=== PATIENT | female | born 1960 | race Caucasian/White ===

== ENCOUNTER 2016-09-05 23:14 | Inpatient (IN) | payer OTHER ==
[~2016-09-05] VITALS: Ht 157.5 cm; Wt 59.0 kg
[2016-09-06] VITALS (8 sets, daily range): BP systolic 128–154; BP diastolic 58–65; PULSE 56–66; RESP 16–20; Ht 157.5 cm; Wt 59.0 kg
[2016-09-06] MEDS ORDERED: ONDANSETRON 4 MG INJ IV PRN (00:30)
[2016-09-06] MEDS ORDERED: morphine 2 MG INJ IV PRN (00:30)
[2016-09-06] MEDS ORDERED: HYDROCODONE/APAP (5/325) TAB PO PRN (00:30)
[2016-09-06] MEDS ORDERED: ACET500C3 PO (00:37)
[2016-09-06] MEDS ORDERED: ALEN70TA30 PO (00:37)
[2016-09-06] MEDS ORDERED: CALC1TAB79 PO (00:37)
[2016-09-06] MEDS ORDERED: IBUP-1542 PO (00:37)
[2016-09-06] MEDS ORDERED: SYN112 PO (00:38)
[2016-09-06] MEDS ORDERED: OMEP20CA16 PO (00:38)
[2016-09-06] MEDS: DEXTROSE 5%-0.45% NACL 1,000 ML IV SCH ×5 (01:09→23:19)
[2016-09-06 05:01] LABS: ADD SCAN DIFF NO
[2016-09-06 05:09] LABS: BASOPHIL # 0.1 10^3/ul (0.0-0.1); BASOPHILS % 0.5 % (0.0-2.0); EOSINOPHILS # 0.2 10^3/ul (0.0-0.5); HEMATOCRIT 31.1 % (37.0-47.0); LYMPHOCYTES # 1.9 10^3/ul (0.8-2.9); LYMPHOCYTES % 18.1 % (15.0-51.0); MEAN CORPUSCULAR HEMOGLOBIN 28.7 pg (29.0-33.0); MEAN CORPUSCULAR HGB CONC 32.2 g/dl (32.0-37.0); MEAN CORPUSCULAR VOLUME 89.1 fl (82.0-101.0); MEAN PLATELET VOLUME 9.2 fl (7.4-10.4); MONOCYTE # 0.8 10^3/ul (0.3-0.9); NEUTROPHIL # 7.4 10^3/ul (1.6-7.5); NEUTROPHILS % 70.8 % (39.0-77.0); PLATELET COUNT 325 10^3/UL (140-415); RED BLOOD COUNT 3.49 10^6/ul (4.20-5.40); RED CELL DISTRIBUTION WIDTH 13.7 % (11.5-14.5); WHITE BLOOD COUNT 10.5 10^3/ul (4.8-10.8)
[2016-09-06 05:56] LABS: ALBUMIN 3.7 g/dl (3.3-4.9); ALBUMIN/GLOBULIN RATIO 1.12; BILIRUBIN,INDIRECT 0.1 mg/dl (0-1.1); BILIRUBIN,TOTAL 0.1 mg/dl (0.2-1.3); CALCIUM 8.4 mg/dl (8.4-10.2); CHOL/HDL RATIO 7.3 RATIO; CREATININE 1.01 mg/dl (0.44-1.00); POTASSIUM 3.7 mmol/L (3.5-5.1)
[2016-09-06] MEDS: PANTOPRAZOLE 40 MG INJ IV SCH (07:09)
[2016-09-06] MEDS: LEVOTHYROXINE 112 MCG TAB PO SCH (07:35)
[2016-09-06] MEDS: CALCIUM/VITAMIN D (500/200) TAB PO SCH (09:00)
--- NOTE | 2016-09-06 11:34 | HP ---
Date/Time of Note Date/Time of Note DATE: 09/06/16 TIME: 11:07 Assessment/Plan VTE Prophylaxis VTE Prophylaxis Intervention: SCD's Lines/Catheters IV Catheter Type (from [facility]): Peripheral IV Urinary Cath still in place: No Assessment/Plan Assessment/Plan -Intractable nausea and vomiting, Dr. Robins is asked to see patient in gastroenterology consultation. -Chronic gastritis, continue Protonix. -Pancreatitis of unknown etiology, continue to monitor lipase and amylase, continue clear liquid diet as patient tolerates. -Hypothyroidism -Sinus bradycardia, will obtain thyroid profile, twelve-lead EKG -Rheumatoid arthritis -Osteoporosis Further recommendations based on clinical course. Plan of care discussed with Dr. Vega. HPI/ROS Admit Date/Time Admit Date/Time Sep 05, 2016 at 23:14 Hx of Present Illness The patient is is a 55-year-old female with past medical history positive for hypothyroidism, osteoporosis, rheumatoid arthritis, and gastritis. Patient developed abdominal pain nausea and vomiting and was admitted to [facility] August 29 and was diagnosed with pancreatitis, workup done including MRCP which was unremarkable, patient also underwent upper endoscopy by Dr. Porter, report is not available however gastric biopsy was positive for mild chronic gastritis and moderate interstitial metaplasia. Patient lipase was elevated to 3000 according to patient and came down to 800 and patient was discharged home. Patient was not able to tolerate food intake at home, complained of nausea and vomiting and patient presented to [facility] and was transferred to [facility] due to insurance reasons reason. Patient's complains of a burning sensation in the chest, patient denied any shortness of breath, denies any chest pain, denies any fever chills. ROS Negative and this was mentioned in HPI PMH/Family/Social Past Medical History Medical History: hypothyroid, other (Rheumatoid arthritis, osteoporosis, gastritis) Past Surgical History Past Surgical Hx: no surgical history Family History Significant Family History: no pertinent family hx Social History Alcohol Use: none Smoking Status: Never smoker Drug Use: none Exam/Review of Systems Vital Signs Vitals Vital Signs Date Time Temp Pulse Resp B/P Pulse Ox O2 Delivery O2 Flow Rate FiO2 09/06/16 09:48 66 09/06/16 07:20 98.1 18 128/58 100 09/06/16 00:00 Room Air Intake and Output 7/08/1709/05/16 09/06/16 15:00 23:00 07:00 Intake Total 830 ml Balance 830 ml Exam Constitutional: alert, oriented Psych: no complaints Head: atraumatic, normocephalic Neck: supple Respiratory: normal air movement Cardiovascular: nl pulses Gastrointestinal: non-tender, soft Musculoskeletal: nl extremities to inspection Extremities: normal pulses Neurological: nl mental status Skin: nl turgor Lymph: nl lymph nodes Labs Result Diagram: 09/06/1642409/06/16424 Medications Medications Current Medications Dextrose/Sodium Chloride (D5-1/2ns) 1,000 ml @ 100 mls/hr Q10H IV Last administered on 09/06/16 01:09; Admin Dose 100 MLS/HR; Start 09/06/16 at 00:30 Pantoprazole (Protonix Iv) 40 mg DAILY@06 IV Last administered on 09/06/16 07: 09; Admin Dose 40 MG; Start 09/06/16 at 06:00 Ondansetron HCl (Zofran Inj) 4 mg Q6H PRN IV NAUSEA AND/OR VOMITING; Start 09/06 at 00:30 Acetaminophen (Tylenol Tab) 650 mg Q4H PRN PO PAIN AND OR ELEVATED TEMP; Start 09/06/16 at 00:30 Acetaminophen/ Hydrocodone Bitart ([place] (5/325)) 1 tab Q4H PRN PO PAIN; Start 09/06/16 at 00:30 Morphine Sulfate (morphine) 2 mg Q4H PRN IV PAIN; Start 09/06/16 at 00:30 Alendronate Sodium (Fosamax) 70 mg Duff@0730 PO ; Start 09/08/16 at 07:30 Calcium/Vitamin D (Oyster Shell/ Vit-D (500/200)) 1 tab DAILY PO Last administered on 09/06/16 09:00; Admin Dose 1 TAB; Start 09/06/16 at 09:00 ANKITA TERRAZAS Sep 06, 2016 11:18
--- NOTE | 2016-09-06 11:49 | CONS ---
Date/Time of Note Date/Time of Note DATE: 09/06/16 TIME: 11:45 Assessment/Plan Assessment/Plan Additional Assessment/Plan Assessment Patient has a acute pancreatitis apparently has been going on for the past 2 weeks no suggestion for gallstone History of alcohol This possibilities is quite possible that she may be passing the sludge from the common bile Pancreatic divisum under the pancreatic duct abnormalities cannot be ruled out Sphincter of Oddi abnormality should be ruled out Plan recommend repeat CAT scan of the abdomen keep her n.p.o. Be happy to follow the patient with you Consultation Date/Type/Reason Admit Date/Time Sep 05, 2016 at 23:14 Hx of Present Illness History of abdominal pain secondary to pancreatitis Patient has been experiencing abdominal pain for the past 2 weeks She was evaluated in the [facility] and then [facility] Because of insurance reasons she was transferred to [facility] She had elevated amylase lipase in the range of 2000 and MRI and MRCP of the abdomen was negative CAT scan of the abdomen was negative she had upper endoscopy which showed evidence of gastritis She continues to have abdominal pain No history of alcoholism Review of systems rheumatoid arthritis hypothyroidism and osteoporosis Psychological: no complaints Past Medical History Medical History: hypothyroid, other (Rheumatoid arthritis, osteoporosis, gastritis) Past Surgical History Past Surgical Hx: no surgical history Social History Alcohol Use: none Smoking Status: Never smoker Drug Use: none Exam/Review of Systems Vital Signs Vitals Vital Signs Date Time Temp Pulse Resp B/P Pulse Ox O2 Delivery O2 Flow Rate FiO2 09/06/16 09:48 66 09/06/16 07:20 98.1 18 128/58 100 09/06/16 00:00 Room Air Intake and Output 09/05/16 09/05/16 09/06/16 15:00 23:00 07:00 Intake Total 830 ml Balance 830 ml Exam On examination patient appears to be well-built she is alert she is not in distress History of for the vitals Omission of the heart normal sinus rhythm Lungs clear on auscultation Abdomen showed a negative findings no abdominal tenderness no palpable masses 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 Results Result Diagram: 09/06/16 0425 09/06/16 0425 Results 24 hrs Laboratory Tests Test 09/06/16 04:25 White Blood Count 10.5 Red Blood Count 3.49 L Hemoglobin 10.0 L Hematocrit 31.1 L Mean Corpuscular Volume 89.1 Mean Corpuscular Hemoglobin 28.7 L Mean Corpuscular Hemoglobin Concent 32.2 Red Cell Distribution Width 13.7 Platelet Count 325 Mean Platelet Volume 9.2 Neutrophils % 70.8 Lymphocytes % 18.1 Monocytes % 8.0 Eosinophils % 2.0 Basophils % 0.5 Nucleated Red Blood Cells % 0.0 Neutrophils # 7.4 Lymphocytes # 1.9 Monocytes # 0.8 Eosinophils # 0.2 Basophils # 0.1 Nucleated Red Blood Cells # 0.0 Sodium Level 142 Potassium Level 3.7 Chloride Level 104 Carbon Dioxide Level 28 Anion Gap 14 Blood Urea Nitrogen 8 Creatinine 1.01 H Glucose Level 117 Calcium Level 8.4 Total Bilirubin 0.1 L Direct Bilirubin 0.00 Indirect Bilirubin 0.1 Aspartate Amino Transf (AST/SGOT) 25 Alanine Aminotransferase (ALT/SGPT) 29 Alkaline Phosphatase 75 Total Protein 7.0 Albumin 3.7 Globulin 3.30 H Albumin/Globulin Ratio 1.12 Triglycerides Level 113 Cholesterol Level 205 H LDL Cholesterol, Calculated 154 HDL Cholesterol 28 L Cholesterol/HDL Ratio 7.3 Amylase Level 188 H Lipase 804 H Medications Medications Current Medications Dextrose/Sodium Chloride (D5-1/2ns) 1,000 ml @ 100 mls/hr Q10H IV Last administered on 09/06/16 01:09; Admin Dose 100 MLS/HR; Start 09/06/16 at 00:30 Pantoprazole (Protonix Iv) 40 mg DAILY@06 IV Last administered on 09/06/16 07: 09; Admin Dose 40 MG; Start 09/06/16 at 06:00 Ondansetron HCl (Zofran Inj) 4 mg Q6H PRN IV NAUSEA AND/OR VOMITING; Start 09/06 at 00:30 Acetaminophen (Tylenol Tab) 650 mg Q4H PRN PO PAIN AND OR ELEVATED TEMP; Start 09/06/16 at 00:30 Acetaminophen/ Hydrocodone Bitart ([place] (5/325)) 1 tab Q4H PRN PO PAIN; Start 09/06/16 at 00:30 Morphine Sulfate (morphine) 2 mg Q4H PRN IV PAIN; Start 09/06/16 at 00:30 Alendronate Sodium (Fosamax) 70 mg Duff@0730 PO ; Start 09/08/16 at 07:30 Calcium/Vitamin D (Oyster Shell/ Vit-D (500/200)) 1 tab DAILY PO Last administered on 09/06/16t 09:00; Admin Dose 1 TAB; Start 09/06/16 at 09:00 SKYLER MCCLELLAND MD Sep 06, 2016 11:49
[2016-09-06 12:49] LABS: ADD SCAN DIFF NO
[2016-09-06 12:52] LABS: BASOPHIL # 0.1 10^3/ul (0.0-0.1); BASOPHILS % 0.6 % (0.0-2.0); EOSINOPHILS # 0.3 10^3/ul (0.0-0.5); EOSINOPHILS % 2.5 % (0.0-7.0); HEMOGLOBIN 11.1 g/dl (12.0-16.0); LYMPHOCYTES # 2.2 10^3/ul (0.8-2.9); LYMPHOCYTES % 20.2 % (15.0-51.0); MEAN CORPUSCULAR HEMOGLOBIN 29.2 pg (29.0-33.0); MEAN CORPUSCULAR HGB CONC 32.6 g/dl (32.0-37.0); MEAN CORPUSCULAR VOLUME 89.5 fl (82.0-101.0); MEAN PLATELET VOLUME 8.9 fl (7.4-10.4); MONOCYTE # 0.9 10^3/ul (0.3-0.9); MONOCYTES % 8.3 % (0.0-11.0); NEUTROPHIL # 7.3 10^3/ul (1.6-7.5); NEUTROPHILS % 67.9 % (39.0-77.0); PLATELET COUNT 361 10^3/UL (140-415); RED CELL DISTRIBUTION WIDTH 13.6 % (11.5-14.5); WHITE BLOOD COUNT 10.8 10^3/ul (4.8-10.8)
[2016-09-06] MEDS ORDERED: BARIUM SULF 2% 450 ML BTL (BERRY SMOOTHIE) PO ONE (13:00)
--- NOTE | 2016-09-06 16:57 | RADRPT ---
Vent Rate: 42 bpm RR Interval: 0 msec PA Interval: 116 msec QRS Duration: 72 msec QT Interval: 496 msec QTC Interval: 414 msec P-R-T [place]: 56 - 8 - 11 degrees Marked sinus bradycardia Nonspecific T wave abnormality Abnormal ECG Electronically Signed By: Hardik Winkler [id number]
[2016-09-07 02:00] VITALS: BP 116/53; PULSE 48; RESP 18
[2016-09-07 03:10] VITALS: BP 116/53; RESP 18
[2016-09-07 05:20] LABS: ADD SCAN DIFF NO
[2016-09-07 05:34] LABS: BASOPHIL # 0.1 10^3/ul (0.0-0.1); BASOPHILS % 0.8 % (0.0-2.0); EOSINOPHILS # 0.4 10^3/ul (0.0-0.5); EOSINOPHILS % 4.2 % (0.0-7.0); HEMATOCRIT 32.8 % (37.0-47.0); HEMOGLOBIN 10.7 g/dl (12.0-16.0); LYMPHOCYTES # 1.6 10^3/ul (0.8-2.9); LYMPHOCYTES % 18.9 % (15.0-51.0); MEAN CORPUSCULAR HEMOGLOBIN 29.1 pg (29.0-33.0); MEAN CORPUSCULAR HGB CONC 32.6 g/dl (32.0-37.0); MEAN CORPUSCULAR VOLUME 89.1 fl (82.0-101.0); MEAN PLATELET VOLUME 9.3 fl (7.4-10.4); MONOCYTE # 0.8 10^3/ul (0.3-0.9); MONOCYTES % 8.9 % (0.0-11.0); NEUTROPHIL # 5.8 10^3/ul (1.6-7.5); NEUTROPHILS % 66.7 % (39.0-77.0); PLATELET COUNT 337 10^3/UL (140-415); RED BLOOD COUNT 3.68 10^6/ul (4.20-5.40); RED CELL DISTRIBUTION WIDTH 13.3 % (11.5-14.5); WHITE BLOOD COUNT 8.6 10^3/ul (4.8-10.8)
[2016-09-07 05:59] LABS: ALBUMIN 3.8 g/dl (3.3-4.9); ALBUMIN/GLOBULIN RATIO 1.11; BILIRUBIN,INDIRECT 0.2 mg/dl (0-1.1); BILIRUBIN,TOTAL 0.2 mg/dl (0.2-1.3); CALCIUM 8.8 mg/dl (8.4-10.2); CREATININE 0.93 mg/dl (0.44-1.00); POTASSIUM 3.2 mmol/L (3.5-5.1); TOTAL PROTEIN 7.2 g/dl (6.1-8.1)
[2016-09-07] MEDS: LEVOTHYROXINE 112 MCG TAB PO SCH (06:25)
[2016-09-07] MEDS: PANTOPRAZOLE 40 MG INJ IV SCH (06:25)
[2016-09-07 08:14] VITALS: BP 119/59; RESP 18
[2016-09-07] MEDS: CALCIUM/VITAMIN D (500/200) TAB PO SCH (09:00)
[2016-09-07] MEDS: DEXTROSE 5%-0.45% NACL 1,000 ML IV SCH ×2 (10:28→16:30)
--- NOTE | 2016-09-07 12:38 | PN ---
Date/Time of Note Date/Time of Note DATE: 09/07/16 TIME: 12:37 Assessment/Plan VTE Prophylaxis VTE Prophylaxis Intervention: other Lines/Catheters IV Catheter Type (from Nrs): Peripheral IV Urinary Cath still in place: No Assessment/Plan Chief Complaint/Hosp Course -Intractable nausea and vomiting, Dr. Robins is asked to see patient in gastroenterology consultation. -Chronic gastritis, continue Protonix. -Pancreatitis of unknown etiology, continue to monitor lipase and amylase, continue clear liquid diet as patient tolerates. -Hypothyroidism -Sinus bradycardia, will obtain thyroid profile, twelve-lead EKG -Rheumatoid arthritis -Osteoporosis Problems: Subjective 24 Hr Interval Summary Free Text/Dictation Patient still complain of abdominal pain Exam/Review of Systems Vital Signs Vitals Vital Signs Date Time Temp Pulse Resp B/P Pulse Ox O2 Delivery O2 Flow Rate FiO2 09/07/16 08:14 97.7 50 18 119/59 98 09/07/16 02:00 Room Air Intake and Output 09/06/16 09/06/16 09/07/16 15:00 23:00 07:00 Intake Total 1220 ml 1630 ml Balance 1220 ml 1630 ml Exam Constitutional: well developed Head: atraumatic, normocephalic Neck: supple Respiratory: clear to auscultation Cardiovascular: regular rate and rhythm Gastrointestinal: soft, tender Extremities: normal pulses Results Result Diagram: 09/07/16 0435 09/07/16 0435 Results 24 hrs Laboratory Tests Test 09/06/16 12:40 09/07/16 04:35 White Blood Count 10.8 8.6 # Red Blood Count 3.80 L 3.68 L Hemoglobin 11.1 L 10.7 L Hematocrit 34.0 L 32.8 L Mean Corpuscular Volume 89.5 89.1 Mean Corpuscular Hemoglobin 29.2 29.1 Mean Corpuscular Hemoglobin Concent 32.6 32.6 Red Cell Distribution Width 13.6 13.3 Platelet Count 361 337 Mean Platelet Volume 8.9 9.3 Neutrophils % 67.9 66.7 Lymphocytes % 20.2 18.9 Monocytes % 8.3 8.9 Eosinophils % 2.5 4.2 Basophils % 0.6 0.8 Nucleated Red Blood Cells % 0.0 0.0 Neutrophils # 7.3 5.8 Lymphocytes # 2.2 1.6 Monocytes # 0.9 0.8 Eosinophils # 0.3 0.4 Basophils # 0.1 0.1 Nucleated Red Blood Cells # 0.0 0.0 Sodium Level 144 Potassium Level 3.2 L Chloride Level 101 Carbon Dioxide Level 29 Anion Gap 17 H Blood Urea Nitrogen 4 L Creatinine 0.93 Glucose Level 137 Calcium Level 8.8 Total Bilirubin 0.2 Direct Bilirubin 0.00 Indirect Bilirubin 0.2 Aspartate Amino Transf (AST/SGOT) 24 Alanine Aminotransferase (ALT/SGPT) 39 Alkaline Phosphatase 75 Total Protein 7.2 Albumin 3.8 Globulin 3.40 H Albumin/Globulin Ratio 1.11 Amylase Level 287 H Lipase 1686 H Thyroid Stimulating Hormone (TSH) 47.300 H Medications Medications Current Medications Dextrose/Sodium Chloride (D5-1/2ns) 1,000 ml @ 100 mls/hr Q10H IV Last administered on 09/07/16 10:28; Admin Dose 100 MLS/HR; Start 09/06/16 at 00:30 Pantoprazole (Protonix Iv) 40 mg DAILY@06 IV Last administered on 09/07/16 06: 25; Admin Dose 40 MG; Start 09/06/16 at 06:00 Ondansetron HCl (Zofran Inj) 4 mg Q6H PRN IV NAUSEA AND/OR VOMITING; Start 09/06 at 00:30 Acetaminophen (Tylenol Tab) 650 mg Q4H PRN PO PAIN AND OR ELEVATED TEMP; Start 09/06/16 at 00:30 Acetaminophen/ Hydrocodone Bitart ([place] (5/325)) 1 tab Q4H PRN PO PAIN; Start 09/06/16 at 00:30 Morphine Sulfate (morphine) 2 mg Q4H PRN IV PAIN; Start 09/06/16 at 00:30 Alendronate Sodium (Fosamax) 70 mg Duff@0730 PO ; Start 09/08/16 at 07:30 Calcium/Vitamin D (Oyster Shell/ Vit-D (500/200)) 1 tab DAILY PO Last administered on 09/06/16 09:00; Admin Dose 1 TAB; Start 09/06/16 at 09:00 Miscellaneous Information VOLUMEN [address] S... ONCE XX ; Start 09/07/16 at 11:00; Status UNV Potassium Chloride/Dextrose/ Sod Cl (D5-1/2ns + KCl 40 Meq) 1,000 ml @ 100 mls/ hr Q10H IV ; Start 09/07/16 at 12:00 CASSY ALLEN Sep 07, 2016 12:37
[2016-09-07] MEDS ORDERED: BARIUM SULFATE 0.1% 450 ML BTL (VOLUMEN) PO ONE (13:17)
[2016-09-07] MEDS ORDERED: BARIUM SULFATE 0.1% 450 ML BTL (VOLUMEN) PO SCH (13:30)
[2016-09-07 14:00] VITALS: BP 172/74; RESP 16
[2016-09-07] MEDS: D5W-0.45 NACL + KCL 40 MEQ 1,000 ML IV SCH ×2 (14:24→22:00)
[2016-09-07] MEDS ORDERED: SOD CHLORIDE 0.9% 100 ML ONE (15:37)
[2016-09-07] MEDS ORDERED: IOHEXOL 300MG/ML 150 ML BTL ONE (15:37)
--- NOTE | 2016-09-07 16:57 | RADRPT ---
PROCEDURE: CT abdomen and pelvis without and with contrast. CLINICAL INDICATION: Abdominal pain radiating to the back. Clinical symptoms of pancreatitis TECHNIQUE: CT scan of the abdomen and pelvis without and then with contrast was performed includin g arterial and venous phase imaging. Coronal and sagittal images were also reformatted. 100 cc Omn ipaque-300 intravenous contrast was administered without complication. Total exam CTDIvol = 26.11 m Gy and DLP = 1075.07 mGy-cm. COMPARISON: None available. FINDINGS: Visualized lower thorax: Linear areas of segmental atelectasis or scarring in the right middle lobe, lingula and posterior lower lobes. The visualized heart is mildly enlarged. Tiny bilateral pleura l effusions are present slightly greater on the left. Liver, gallbladder, pancreas and spleen: Diffuse low attenuation of the liver is present with julia l liver contour and size the maximum dimension 15.7 cm. Some sparing of normal hepatic attenuation of the gallbladder fossa is present. There is no evidence for liver mass or ductal dilatation. The gallbladder is unremarkable. No common bile duct dilatation is evident. The pancreas is normal in attenuation without adjacent inflammation to suggest pancreatitis. No pancreatic mass or necrosis is present. The pancreatic duct is normal in caliber. The spleen is normal, not enlarged. Adrenal glands and genitourinary system: The adrenal glands are normal bilaterally. The kidneys ar e normal in size, contour and attenuation with no evidence for masses, calculi or hydronephrosis. S ubtle patchy heterogeneous enhancement of the right renal cortex near the upper pole is equivocal fo r pyelonephritis without abscess. A tiny cyst in the medial right upper pole is approximately 7 mm. The ureters are unremarkable. The urinary bladder shows no abnormality. The uterus and adnexa ar e unremarkable. There is no free fluid in the cul-de-sac. Gastrointestinal system: Small sliding hiatal hernia is present. The remainder of the stomach is u nremarkable, normal in caliber without wall thickening or perienteric inflammation There is no evid ence of obstruction, ileus or inflammation. There is no evidence of appendicitis. Some hyperdense f ecal debris is seen throughout the colon but there is no evidence of colitis or diverticulitis. Peritoneum, retroperitoneum, vessels and lymph nodes: The abdominal aorta is normal in caliber. Th ere is no evidence for atherosclerotic calcification. Normal enhancement of the arterial branches is demonstrated. Inferior vena cava is normal in caliber. There is no evidence for adenopathy. The peritoneal cavity is normal with no evidence for ascites. Osseous structures and musculoskeletal system: There is no evidence for acute osseous abnormality o r muscular pathology. Trace degenerative disk disease at L2-3 is noted. Small fat-containing right inguinal hernia is approximately 1.7 cm. No subcutaneous abnormalities are present. RPTAT:HJJR IMPRESSION: 1. Homogeneous attenuation of the pancreas without adjacent peripancreatic inflammation to correlate with the provided history of pancreatitis. 2. Hepatic steatosis with normal liver size. 3. Subtle patchy heterogeneous enhancement of the upper pole right kidney equivocal for pyelonephri tis without abscess, consider correlation with costovertebral angle tenderness on physical exam and urinalysis if not already performed. 4. Tiny bilateral pleural effusions, cardiac enlargement and scattered bibasilar subsegmental atele ctasis. 5. Small sliding hiatal hernia. 6. Fat-containing right inguinal hernia of approximately 1.7 cm. Physician Mariajose Date Time Electronically viewed and signed by Physician Mariajose on 09/07/2016 16:57 /
[2016-09-07 17:14] VITALS: BP 140/78; PULSE 55
--- NOTE | 2016-09-07 19:41 | CONS ---
Date/Time of Note Date/Time of Note DATE: 09/07/16 TIME: 19:40 Assessment/Plan Assessment/Plan Chief Complaint/Hosp Course History of abdominal pain secondary to pancreatitis Patient has been experiencing abdominal pain for the past 2 weeks She was evaluated in the [facility] and then [facility] Because of insurance reasons she was transferred to [facility] She had elevated amylase lipase in the range of 2000 and MRI and MRCP of the abdomen was negative CAT scan of the abdomen was negative she had upper endoscopy which showed evidence of gastritis She continues to have abdominal pain No history of alcoholism Review of systems rheumatoid arthritis hypothyroidism and osteoporosis Problems: Consultation Date/Type/Reason Admit Date/Time Sep 05, 2016 at 23:14 Hx of Present Illness History of abdominal pain secondary to pancreatitis Patient has been experiencing abdominal pain for the past 2 weeks She was evaluated in the [facility] and then [facility] Because of insurance reasons she was transferred to [facility] She had elevated amylase lipase in the range of 2000 and MRI and MRCP of the abdomen was negative CAT scan of the abdomen was negative she had upper endoscopy which showed evidence of gastritis She continues to have abdominal pain No history of alcoholism Review of systems rheumatoid arthritis hypothyroidism and osteoporosis Psychological: no complaints Past Medical History Medical History: hypothyroid, other (Rheumatoid arthritis, osteoporosis, gastritis) Past Surgical History Past Surgical Hx: no surgical history Social History Alcohol Use: none Smoking Status: Never smoker Drug Use: none Exam/Review of Systems Vital Signs Vitals Vital Signs Date Time Temp Pulse Resp B/P Pulse Ox O2 Delivery O2 Flow Rate FiO2 09/07/16 17:14 55 140/78 09/07/16 14:00 97.8 16 100 09/07/16 02:00 Room Air Intake and Output 09/06/16 09/06/16 09/07/16 15:00 23:00 07:00 Intake Total 1220 ml 1630 ml Balance 1220 ml 1630 ml Results Result Diagram: 09/07/16 0435 09/07/16 0435 Results 24 hrs Laboratory Tests Test 09/07/16 04:35 White Blood Count 8.6 # Red Blood Count 3.68 L Hemoglobin 10.7 L Hematocrit 32.8 L Mean Corpuscular Volume 89.1 Mean Corpuscular Hemoglobin 29.1 Mean Corpuscular Hemoglobin Concent 32.6 Red Cell Distribution Width 13.3 Platelet Count 337 Mean Platelet Volume 9.3 Neutrophils % 66.7 Lymphocytes % 18.9 Monocytes % 8.9 Eosinophils % 4.2 Basophils % 0.8 Nucleated Red Blood Cells % 0.0 Neutrophils # 5.8 Lymphocytes # 1.6 Monocytes # 0.8 Eosinophils # 0.4 Basophils # 0.1 Nucleated Red Blood Cells # 0.0 Sodium Level 144 Potassium Level 3.2 L Chloride Level 101 Carbon Dioxide Level 29 Anion Gap 17 H Blood Urea Nitrogen 4 L Creatinine 0.93 Glucose Level 137 Calcium Level 8.8 Total Bilirubin 0.2 Direct Bilirubin 0.00 Indirect Bilirubin 0.2 Aspartate Amino Transf (AST/SGOT) 24 Alanine Aminotransferase (ALT/SGPT) 39 Alkaline Phosphatase 75 Total Protein 7.2 Albumin 3.8 Globulin 3.40 H Albumin/Globulin Ratio 1.11 Amylase Level 287 H Lipase 1686 H Thyroid Stimulating Hormone (TSH) 47.300 H Medications Medications Current Medications Pantoprazole (Protonix Iv) 40 mg DAILY@06 IV Last administered on 09/07/16 06: 25; Admin Dose 40 MG; Start 09/06/16 at 06:00 Ondansetron HCl (Zofran Inj) 4 mg Q6H PRN IV NAUSEA AND/OR VOMITING; Start 09/06 at 00:30 Acetaminophen (Tylenol Tab) 650 mg Q4H PRN PO PAIN AND OR ELEVATED TEMP; Start 09/06/16 at 00:30 Acetaminophen/ Hydrocodone Bitart ([place] (5/325)) 1 tab Q4H PRN PO PAIN; Start 09/06/16 at 00:30 Morphine Sulfate (morphine) 2 mg Q4H PRN IV PAIN; Start 09/06/16 at 00:30 Alendronate Sodium (Fosamax) 70 mg Duff@0730 PO ; Start 09/08/16 at 07:30 Calcium/Vitamin D 1 tab 1 tab DAILY PO Last administered on 09/06/16 09:00; Admin Dose 1 TAB; Start 09/06/16 at 09:00 Potassium Chloride/Dextrose/ Sod Cl (D5-1/2ns + KCl 40 Meq) 1,000 ml @ 100 mls/ hr Q10H IV Last administered on 09/07/16 14:24; Admin Dose 100 MLS/HR; Start at 12:00 SKYLER MCCLELLAND MD Sep 07, 2016 19:40
--- NOTE | 2016-09-07 19:42 | CONS ---
Date/Time of Note Date/Time of Note DATE: 09/07/16 TIME: 19:41 Assessment/Plan Assessment/Plan Chief Complaint/Hosp Course History of abdominal pain secondary to pancreatitis Patient has been experiencing abdominal pain for the past 2 weeks She was evaluated in the [facility] and then [facility] Because of insurance reasons she was transferred to [facility] She had elevated amylase lipase in the range of 2000 and MRI and MRCP of the abdomen was negative CAT scan of the abdomen was negative she had upper endoscopy which showed evidence of gastritis She continues to have abdominal pain No history of alcoholism Review of systems rheumatoid arthritis hypothyroidism and osteoporosis Problems: Consultation Date/Type/Reason Admit Date/Time Sep 05, 2016 at 23:14 Initial Consult Date 24 HR Interval Summary Free Text/Dictation no pain Exam/Review of Systems Vital Signs Vitals Vital Signs Date Time Temp Pulse Resp B/P Pulse Ox O2 Delivery O2 Flow Rate FiO2 09/07/16 17:14 55 140/78 09/07/16 14:00 97.8 16 100 09/07/16 02:00 Room Air Intake and Output 09/06/16 09/06/16 09/07/16 15:00 23:00 07:00 Intake Total 1220 ml 1630 ml Balance 1220 ml 1630 ml Exam vs normal abd soft ct abd no pancreatitis lipasec elevated Results Result Diagram: 09/07/16 0435 09/07/16 0435 Results 24 hrs Laboratory Tests Test 09/07/16 04:35 White Blood Count 8.6 # Red Blood Count 3.68 L Hemoglobin 10.7 L Hematocrit 32.8 L Mean Corpuscular Volume 89.1 Mean Corpuscular Hemoglobin 29.1 Mean Corpuscular Hemoglobin Concent 32.6 Red Cell Distribution Width 13.3 Platelet Count 337 Mean Platelet Volume 9.3 Neutrophils % 66.7 Lymphocytes % 18.9 Monocytes % 8.9 Eosinophils % 4.2 Basophils % 0.8 Nucleated Red Blood Cells % 0.0 Neutrophils # 5.8 Lymphocytes # 1.6 Monocytes # 0.8 Eosinophils # 0.4 Basophils # 0.1 Nucleated Red Blood Cells # 0.0 Sodium Level 144 Potassium Level 3.2 L Chloride Level 101 Carbon Dioxide Level 29 Anion Gap 17 H Blood Urea Nitrogen 4 L Creatinine 0.93 Glucose Level 137 Calcium Level 8.8 Total Bilirubin 0.2 Direct Bilirubin 0.00 Indirect Bilirubin 0.2 Aspartate Amino Transf (AST/SGOT) 24 Alanine Aminotransferase (ALT/SGPT) 39 Alkaline Phosphatase 75 Total Protein 7.2 Albumin 3.8 Globulin 3.40 H Albumin/Globulin Ratio 1.11 Amylase Level 287 H Lipase 1686 H Thyroid Stimulating Hormone (TSH) 47.300 H Medications Medications Current Medications Pantoprazole (Protonix Iv) 40 mg DAILY@06 IV Last administered on 09/07/16 06: 25; Admin Dose 40 MG; Start 09/06/16 at 06:00 Ondansetron HCl (Zofran Inj) 4 mg Q6H PRN IV NAUSEA AND/OR VOMITING; Start 09/06 at 00:30 Acetaminophen (Tylenol Tab) 650 mg Q4H PRN PO PAIN AND OR ELEVATED TEMP; Start 09/06/16 at 00:30 Acetaminophen/ Hydrocodone Bitart ([place] (5/325)) 1 tab Q4H PRN PO PAIN; Start 09/06/16 at 00:30 Morphine Sulfate (morphine) 2 mg Q4H PRN IV PAIN; Start 09/06/16 at 00:30 Alendronate Sodium (Fosamax) 70 mg Duff@0730 PO ; Start 09/08/16 at 07:30 Calcium/Vitamin D 1 tab 1 tab DAILY PO Last administered on 09/06/16 09:00; Admin Dose 1 TAB; Start 09/06/16 at 09:00 Potassium Chloride/Dextrose/ Sod Cl (D5-1/2ns + KCl 40 Meq) 1,000 ml @ 100 mls/ hr Q10H IV Last administered on 09/07/16 14:24; Admin Dose 100 MLS/HR; Start at 12:00 SKYLER MCCLELLAND MD Sep 07, 2016 19:42
[2016-09-07 19:47] VITALS: BP 138/65; RESP 20
[2016-09-08 02:09] VITALS: BP 100/52; RESP 18
[2016-09-08] MEDS: D5W-0.45 NACL + KCL 40 MEQ 1,000 ML IV SCH ×2 (02:33→14:44)
[2016-09-08] MEDS: PANTOPRAZOLE 40 MG INJ IV SCH (05:42)
[2016-09-08] MEDS: LEVOTHYROXINE 112 MCG TAB PO SCH (06:07)
[2016-09-08] MEDS ORDERED: ALENDRONATE 70 MG TAB PO SCH (07:30)
[2016-09-08 08:08] VITALS: BP 110/51; RESP 18
[2016-09-08] MEDS: CALCIUM/VITAMIN D (500/200) TAB PO SCH (09:07)
--- NOTE | 2016-09-08 12:30 | PN ---
Date/Time of Note Date/Time of Note DATE: 09/08/16 TIME: 12:30 Assessment/Plan VTE Prophylaxis VTE Prophylaxis Intervention: other Lines/Catheters IV Catheter Type (from Nrsg): Peripheral IV Urinary Cath still in place: No Assessment/Plan Chief Complaint/Hosp Course -Intractable nausea and vomiting, Dr. Robins is asked to see patient in gastroenterology consultation. -Chronic gastritis, continue Protonix. -Pancreatitis of unknown etiology, continue to monitor lipase and amylase, continue clear liquid diet as patient tolerates. -Hypothyroidism -Sinus bradycardia, will obtain thyroid profile, twelve-lead EKG -Rheumatoid arthritis -Osteoporosis Problems: Subjective 24 Hr Interval Summary Free Text/Dictation Patient denies any pain, tolerating her current diet Exam/Review of Systems Vital Signs Vitals Vital Signs Date Time Temp Pulse Resp B/P Pulse Ox O2 Delivery O2 Flow Rate FiO2 09/08/16 08:08 98.3 60 18 110/51 97 09/07/16 02:00 Room Air Intake and Output 09/07/16 09/07/16 09/08/16 15:00 23:00 07:00 Intake Total 700 ml 2080 ml 1200 ml Balance 700 ml 2080 ml 1200 ml Exam Constitutional: well developed Head: atraumatic, normocephalic Neck: supple Respiratory: clear to auscultation Cardiovascular: regular rate and rhythm Gastrointestinal: soft, tender Extremities: normal pulses Results Result Diagram: 09/07/16 0435 09/07/16 0435 Medications Medications Current Medications Pantoprazole (Protonix Iv) 40 mg DAILY@06 IV Last administered on 09/08/16t 05: 42; Admin Dose 40 MG; Start 09/06/16 at 06:00 Ondansetron HCl (Zofran Inj) 4 mg Q6H PRN IV NAUSEA AND/OR VOMITING; Start 09/06 at 00:30 Acetaminophen (Tylenol Tab) 650 mg Q4H PRN PO PAIN AND OR ELEVATED TEMP; Start 09/06/16 at 00:30 Acetaminophen/ Hydrocodone Bitart ([place] (5/325)) 1 tab Q4H PRN PO PAIN; Start 09/06/16 at 00:30 Morphine Sulfate (morphine) 2 mg Q4H PRN IV PAIN; Start 09/06/16 at 00:30 Alendronate Sodium (Fosamax) 70 mg [place]@0730 PO ; Start 09/08/16 at 07:30 Calcium/Vitamin D 1 tab 1 tab DAILY PO Last administered on 09/08/16 09:07; Admin Dose 1 TAB; Start 09/06/16 at 09:00 Potassium Chloride/Dextrose/ Sod Cl (D5-1/2ns + KCl 40 Meq) 1,000 ml @ 100 mls/ hr Q10H IV Last administered on 09/08/16 02:33; Admin Dose 100 MLS/HR; Start at 12:00 CASSY ALLEN Sep 08, 2016 12:30
[2016-09-08 14:58] VITALS: BP 129/72; RESP 16
--- NOTE | 2016-09-08 17:52 | CONS ---
Date/Time of Note Date/Time of Note DATE: 09/08/16 TIME: 17:49 Assessment/Plan Assessment/Plan Chief Complaint/Hosp Course History of abdominal pain secondary to pancreatitis Patient has been experiencing abdominal pain for the past 2 weeks She was evaluated in the [facility] and then [facility] Because of insurance reasons she was transferred to [facility] She had elevated amylase lipase in the range of 2000 and MRI and MRCP of the abdomen was negative CAT scan of the abdomen was negative she had upper endoscopy which showed evidence of gastritis She continues to have abdominal pain No history of alcoholism Review of systems rheumatoid arthritis hypothyroidism and osteoporosis Problems: Additional Assessment/Plan slowly ressolving pancreatitis etio un clear lipase still elevated pt not toxic abd to full liquids at patients request Consultation Date/Type/Reason Admit Date/Time Sep 05, 2016 at 23:14 24 HR Interval Summary Free Text/Dictation no abd pain on clear liquids wants to eat more Exam/Review of Systems Vital Signs Vitals Vital Signs Date Time Temp Pulse Resp B/P Pulse Ox O2 Delivery O2 Flow Rate FiO2 09/08/16 14:58 97.7 59 16 129/72 97 09/07/16 02:00 Room Air Intake and Output 09/07/16 09/07/16 09/08/16 15:00 23:00 07:00 Intake Total 700 ml 2080 ml 1200 ml Balance 700 ml 2080 ml 1200 ml Exam appears well abd soft non tender Results Result Diagram: 09/07/16 0435 09/07/16 0435 Results 24 hrs Laboratory Tests Test 09/08/16 11:34 Lipase 1614 H Medications Medications Current Medications Pantoprazole (Protonix Iv) 40 mg DAILY@06 IV Last administered on 09/08/16t 05: 42; Admin Dose 40 MG; Start 09/06/16 at 06:00 Ondansetron HCl (Zofran Inj) 4 mg Q6H PRN IV NAUSEA AND/OR VOMITING; Start 09/06 at 00:30 Acetaminophen (Tylenol Tab) 650 mg Q4H PRN PO PAIN AND OR ELEVATED TEMP; Start 09/06/16 at 00:30 Acetaminophen/ Hydrocodone Bitart ([place] (5/325)) 1 tab Q4H PRN PO PAIN; Start 09/06/16 at 00:30 Morphine Sulfate (morphine) 2 mg Q4H PRN IV PAIN; Start 09/06/16 at 00:30 Calcium/Vitamin D 1 tab 1 tab DAILY PO Last administered on 09/08/16 09:07; Admin Dose 1 TAB; Start 09/06/16 at 09:00 Potassium Chloride/Dextrose/ Sod Cl (D5-1/2ns + KCl 40 Meq) 1,000 ml @ 100 mls/ hr Q10H IV Last administered on 09/08/16 14:44; Admin Dose 100 MLS/HR; Start at 12:00 Alendronate Sodium (Fosamax) 70 mg Mo@0730 PO ; Start 09/09/16 at 07:30 SKYLER MCCLELLAND MD Sep 08, 2016 17:51
[2016-09-08] MEDS: CREON (12k-38k-60k) 1 CAP PO SCH (18:06)
[2016-09-08 19:40] VITALS: BP 127/60; RESP 18
[2016-09-09] MEDS: D5W-0.45 NACL + KCL 40 MEQ 1,000 ML IV SCH ×2 (00:58→13:36)
[2016-09-09] MEDS: PANTOPRAZOLE 40 MG INJ IV SCH (06:02)
[2016-09-09] MEDS: LEVOTHYROXINE 112 MCG TAB PO SCH (07:00)
[2016-09-09] MEDS ORDERED: ALENDRONATE 70 MG TAB PO SCH (07:30)
[2016-09-09] MEDS: CREON (12k-38k-60k) 1 CAP PO SCH ×3 (08:25→17:33)
[2016-09-09] MEDS: CALCIUM/VITAMIN D (500/200) TAB PO SCH (08:25)
[2016-09-09 08:31] VITALS: BP 104/55; RESP 16
--- NOTE | 2016-09-09 13:08 | PN ---
Date/Time of Note Date/Time of Note DATE: 09/09/16 TIME: 13:05 Assessment/Plan VTE Prophylaxis VTE Prophylaxis Intervention: SCD's Lines/Catheters IV Catheter Type (from Nrs): Peripheral IV Urinary Cath still in place: No Assessment/Plan Chief Complaint/Hosp Course Patient tolerates liquid diet well, denies any vomiting nausea, refused levothyroxine in the morning, medication compliance is discussed with patient in details. Assessment/Plan -Intractable nausea and vomiting, Dr. Robins is following in gastroenterology consultation. -Chronic gastritis, continue Protonix. -Pancreatitis of unknown etiology, continue to monitor lipase and amylase, continue clear liquid diet as patient tolerates. -Hypothyroidism, TSH is 47, will increase Synthroid. -Sinus bradycardia -Rheumatoid arthritis -Osteoporosis Further recommendations based on clinical course. Plan of care discussed with Dr. Vega. Problems: Exam/Review of Systems Vital Signs Vitals Vital Signs Date Time Temp Pulse Resp B/P Pulse Ox O2 Delivery O2 Flow Rate FiO2 09/09/16 08:31 98.0 58 16 104/55 99 09/07/16 02:00 Room Air Intake and Output 09/08/16 09/08/16 09/09/16 14:59 22:59 06:59 Intake Total 1420 ml 800 ml Balance 1420 ml 800 ml Exam Constitutional: alert, oriented Head: atraumatic, normocephalic Neck: supple Respiratory: normal air movement Cardiovascular: nl pulses Gastrointestinal: non-tender, soft Musculoskeletal: nl extremities to inspection Extremities: normal pulses Neurological: nl mental status Skin: nl turgor Results Result Diagram: 09/07/16 0435 09/07/16 0435 Results 24 hrs Laboratory Tests Test 09/09/16 04:32 Lipase 1447 H Medications Medications Current Medications Pantoprazole (Protonix Iv) 40 mg DAILY@06 IV Last administered on 09/09/16t 06: 02; Admin Dose 40 MG; Start 09/06/16 at 06:00 Ondansetron HCl (Zofran Inj) 4 mg Q6H PRN IV NAUSEA AND/OR VOMITING; Start 09/06 at 00:30 Acetaminophen (Tylenol Tab) 650 mg Q4H PRN PO PAIN AND OR ELEVATED TEMP; Start 09/06/16 at 00:30 Acetaminophen/ Hydrocodone Bitart ([place] (5/325)) 1 tab Q4H PRN PO PAIN; Start 09/06/16 at 00:30 Morphine Sulfate (morphine) 2 mg Q4H PRN IV PAIN; Start 09/06/16 at 00:30 Calcium/Vitamin D 1 tab 1 tab DAILY PO Last administered on 09/09/16 08:25; Admin Dose 1 TAB; Start 09/06/16 at 09:00 Potassium Chloride/Dextrose/ Sod Cl (D5-1/2ns + KCl 40 Meq) 1,000 ml @ 100 mls/ hr Q10H IV Last administered on 09/09/16 00:58; Admin Dose 100 MLS/HR; Start 09/07/16 at 12:00 Alendronate Sodium 70 mg 70 mg Mo@0730 PO ; Start 09/09/16 at 07:30 Potassium Chloride/ Multivitamins/ Dextrose/Sodium Chloride (KCl/Mvi Adult/ D5-1 /2ns) 1,030 ml @ 100 mls/hr DAILY@10 IV ; Start 09/09/16 at 12:00 ANKITA TERRAZAS Sep 09, 2016 13:08
[2016-09-09] MEDS: [UNRECOGNIZED DRUG - OTHER] IV SCH ×3 (13:33)
[2016-09-09] MEDS: MULTIVITAMIN IV SCH ×3 (13:33)
[2016-09-09] MEDS: DEXTROSE IV SCH ×3 (13:33)
[2016-09-09] MEDS: POTASSIUM CHLORIDE IV SCH ×3 (13:33)
[2016-09-09 15:13] VITALS: BP 129/72; RESP 16
[2016-09-09 15:22] LABS: T3 UPTAKE 29.9 % (23.5-40.5)
[2016-09-09] MEDS: LEVOTHYROXINE 150 MCG TAB PO SCH (16:51)
[2016-09-09 22:42] VITALS: BP 108/57; RESP 19
--- NOTE | 2016-09-09 23:41 | RADRPT ---
PROCEDURE: MRCP. CLINICAL INDICATION: Pancreatitis TECHNIQUE: MRCP was performed on the a high-resolution, high Priya field strength scanner. Patien t was examined without contrast. 3-D coronal rotating MIP images of the biliary tree are available for review. COMPARISON: CT abdomen and pelvis with and without contrast of 09/07/2016 FINDINGS: Gallbladder is unremarkable. The biliary tree is not dilated. No intrahepatic nor extrahepatic bili keyanna dilatation is present. No filling defect or choledocholithiasis is seen. There is no stricture o r obstruction seen in the extrahepatic bile duct. The pancreatic duct, as visualized, is equally unr emarkable. 1 cm right renal cyst. IMPRESSION: 1. Unremarkable MRCP RPTAT: HJES .Roger Ferris MD, Date Time Electronically viewed and signed by .Roger Ferris MD, on 09/09/2016 23:41 .S/
[2016-09-10 02:48] VITALS: BP 106/51; RESP 19
[2016-09-10] MEDS: D5W-0.45 NACL + KCL 40 MEQ 1,000 ML IV SCH ×3 (03:01→23:53)
[2016-09-10] MEDS: PANTOPRAZOLE (EC) 40 MG TAB PO SCH (05:09)
[2016-09-10] MEDS: LEVOTHYROXINE 150 MCG TAB PO SCH (05:09)
[2016-09-10] MEDS ORDERED: ALENDRONATE 70 MG TAB PO SCH (06:00)
[2016-09-10] MEDS ORDERED: LEVOTHYROXINE 150 MCG TAB PO SCH (06:00)
[2016-09-10 06:31] LABS: ADD SCAN DIFF NO
[2016-09-10 06:49] LABS: BASOPHIL # 0.1 10^3/ul (0.0-0.1); BASOPHILS % 0.9 % (0.0-2.0); EOSINOPHILS # 0.3 10^3/ul (0.0-0.5); EOSINOPHILS % 4.5 % (0.0-7.0); HEMATOCRIT 33.1 % (37.0-47.0); HEMOGLOBIN 10.7 g/dl (12.0-16.0); LYMPHOCYTES # 1.6 10^3/ul (0.8-2.9); LYMPHOCYTES % 21.4 % (15.0-51.0); MEAN CORPUSCULAR HEMOGLOBIN 29.4 pg (29.0-33.0); MEAN CORPUSCULAR HGB CONC 32.3 g/dl (32.0-37.0); MEAN CORPUSCULAR VOLUME 90.9 fl (82.0-101.0); MEAN PLATELET VOLUME 9.9 fl (7.4-10.4); MONOCYTES % 13.4 % (0.0-11.0); NEUTROPHIL # 4.4 10^3/ul (1.6-7.5); NEUTROPHILS % 59.4 % (39.0-77.0); PLATELET COUNT 282 10^3/UL (140-415); RED BLOOD COUNT 3.64 10^6/ul (4.20-5.40); RED CELL DISTRIBUTION WIDTH 13.7 % (11.5-14.5); WHITE BLOOD COUNT 7.5 10^3/ul (4.8-10.8)
[2016-09-10 07:22] LABS: CALCIUM 9.3 mg/dl (8.4-10.2); CREATININE 0.84 mg/dl (0.44-1.00); POTASSIUM 4.5 mmol/L (3.5-5.1)
[2016-09-10] MEDS: CALCIUM/VITAMIN D (500/200) TAB PO SCH (08:20)
[2016-09-10] MEDS: CREON (12k-38k-60k) 1 CAP PO SCH ×3 (08:20→17:21)
[2016-09-10 08:56] VITALS: BP 133/70; RESP 18
--- NOTE | 2016-09-10 11:47 | PN ---
Date/Time of Note Date/Time of Note DATE: 09/10/16 TIME: 11:45 Assessment/Plan VTE Prophylaxis VTE Prophylaxis Intervention: SCD's Lines/Catheters IV [facility] ([facility] Peripheral IV Urinary Cath still in place: No Assessment/Plan Chief Complaint/Hosp Course Patient is status post MRCP yesterday, started on pured diet, denies any nausea vomiting today, complains of poor appetite. Assessment/Plan -Intractable nausea and vomiting, Dr. Robins is following in gastroenterology consultation. -Chronic gastritis, continue Protonix. -Pancreatitis of unknown etiology, continue to monitor lipase and amylase, advance diet per gastroenterology recommendations. -Hypothyroidism, TSH is 47, continue at increased dose Synthroid. -Sinus bradycardia -Rheumatoid arthritis -Osteoporosis Further recommendations based on clinical course. Plan of care discussed with Dr. Vega. Problems: Exam/Review of Systems Vital Signs Vitals Vital Signs Date Time Temp Pulse Resp B/P Pulse Ox O2 Delivery O2 Flow Rate FiO2 09/10/16 08:56 98.0 71 18 133/70 98 09/07/16 02:00 Room Air Intake and Output 09/09/16 09/09/16 09/10/16 15:00 23:00 07:00 Intake Total 500 ml 700 ml 1100 ml Balance 500 ml 700 ml 1100 ml Exam Constitutional: alert, oriented Head: atraumatic, normocephalic Neck: supple Respiratory: normal air movement Cardiovascular: nl pulses Gastrointestinal: non-tender, soft Musculoskeletal: nl extremities to inspection Extremities: normal pulses Neurological: nl mental status Skin: nl turgor Results Result Diagram: 09/10/16 0435 09/10/16 0435 Results 24 hrs Laboratory Tests Test 09/09/16 14:23 09/10/16 04:35 Free Thyroxine Index 3.80 Thyroxine (T4) 12.7 H Triiodothyronine (T3) Uptake 29.9 White Blood Count 7.5 Red Blood Count 3.64 L Hemoglobin 10.7 L Hematocrit 33.1 L Mean Corpuscular Volume 90.9 Mean Corpuscular Hemoglobin 29.4 Mean Corpuscular Hemoglobin Concent 32.3 Red Cell Distribution Width 13.7 Platelet Count 282 Mean Platelet Volume 9.9 Neutrophils % 59.4 Lymphocytes % 21.4 Monocytes % 13.4 H Eosinophils % 4.5 Basophils % 0.9 Nucleated Red Blood Cells % 0.0 Neutrophils # 4.4 Lymphocytes # 1.6 Monocytes # 1.0 H Eosinophils # 0.3 Basophils # 0.1 Nucleated Red Blood Cells # 0.0 Sodium Level 135 Potassium Level 4.5 Chloride Level 104 Carbon Dioxide Level 26 Anion Gap 10 Blood Urea Nitrogen 4 L Creatinine 0.84 Glucose Level 116 Calcium Level 9.3 Medications Medications Current Medications Ondansetron HCl (Zofran Inj) 4 mg Q6H PRN IV NAUSEA AND/OR VOMITING; Start 09/06 at 00:30 Acetaminophen (Tylenol Tab) 650 mg Q4H PRN PO PAIN AND OR ELEVATED TEMP; Start 09/06/16 at 00:30 Acetaminophen/ Hydrocodone Bitart ([place] (5/325)) 1 tab Q4H PRN PO PAIN; Start 09/06/16 at 00:30 Morphine Sulfate (morphine) 2 mg Q4H PRN IV PAIN; Start 09/06/16 at 00:30 Calcium/Vitamin D 1 tab 1 tab DAILY PO Last administered on 09/10/16 08:20; Admin Dose 1 TAB; Start 09/06/16 at 09:00 Potassium Chloride/Dextrose/ Sod Cl 1,000 ml @ 100 mls/hr Q10H IV Last administered on 09/10/16 03:01; Admin Dose 100 MLS/HR; Start 09/07/16 at 12:00 Potassium Chloride/ Multivitamins/ Dextrose/Sodium Chloride (KCl/Mvi Adult/ D5-1 /2ns) 1,030 ml @ 100 mls/hr DAILY@10 IV Last administered on 09/09/16 13:33; Admin Dose 100 MLS/HR; Start 09/09/16 at 12:00 Levothyroxine Sodium (Synthroid) 150 mcg DAILY@06 PO Last administered on 05:09; Admin Dose 150 MCG; Start 09/09/16 at 16:00 Alendronate Sodium (Fosamax) 70 mg Tu@06 PO Last administered on 09/10/16 05: 09; Admin Dose 70 MG; Start 09/10/16 at 06:00 Pantoprazole (Protonix Tab) 40 mg DAILY@06 PO Last administered on 09/10/16 05 :09; Admin Dose 40 MG; Start 09/10/16 at 06:00 Neomycin/ Polymyxin/ Bacitracin (Neosporin Topical Oint) 1 applic BID TOP ; Start 09/10/16 at 11:00 ANKITA TERRAZAS Sep 10, 2016 11:47
[2016-09-10] MEDS: [UNRECOGNIZED DRUG - OTHER] IV SCH ×3 (12:12)
[2016-09-10] MEDS: DEXTROSE IV SCH ×3 (12:12)
[2016-09-10] MEDS: POTASSIUM CHLORIDE IV SCH ×3 (12:12)
[2016-09-10] MEDS: MULTIVITAMIN IV SCH ×3 (12:12)
[2016-09-10] MEDS: NEOMYC/POLYMYX/BACIT 30 GM OINT TOP SCH ×2 (13:56→20:36)
[2016-09-10 15:14] VITALS: BP_SYST 133; BP_SYST 95; BP_DIAS 50; BP_DIAS 70; RESP 16; RESP 18
[2016-09-10 20:43] VITALS: BP 99/51; RESP 18
[2016-09-11 02:11] VITALS: BP 113/53; RESP 18
[2016-09-11] MEDS: PANTOPRAZOLE (EC) 40 MG TAB PO SCH (05:02)
[2016-09-11] MEDS: LEVOTHYROXINE 150 MCG TAB PO SCH (05:04)
[2016-09-11] MEDS: D5W-0.45 NACL + KCL 40 MEQ 1,000 ML IV SCH ×2 (06:00→16:50)
[2016-09-11 07:35] VITALS: BP 118/64; RESP 16
[2016-09-11] MEDS: NEOMYC/POLYMYX/BACIT 30 GM OINT TOP SCH ×2 (08:22→21:06)
[2016-09-11] MEDS: CREON (12k-38k-60k) 1 CAP PO SCH ×3 (08:22→17:16)
[2016-09-11] MEDS: CALCIUM/VITAMIN D (500/200) TAB PO SCH (08:22)
[2016-09-11] MEDS: MULTIVITAMIN IV SCH ×3 (12:28)
[2016-09-11] MEDS: DEXTROSE IV SCH ×3 (12:28)
[2016-09-11] MEDS: [UNRECOGNIZED DRUG - OTHER] IV SCH ×3 (12:28)
[2016-09-11] MEDS: POTASSIUM CHLORIDE IV SCH ×3 (12:28)
[2016-09-11 14:03] VITALS: BP 99/57; RESP 16
--- NOTE | 2016-09-11 17:37 | PN ---
Date/Time of Note Date/Time of Note DATE: 09/11/16 TIME: 17:36 Assessment/Plan VTE Prophylaxis VTE Prophylaxis Intervention: SCD's Lines/Catheters IV Catheter Type (from Nrs): Peripheral IV Urinary Cath still in place: No Assessment/Plan Chief Complaint/Hosp Course Patient denies any nausea vomiting, tolerates pured diet well. Assessment/Plan -Intractable nausea and vomiting, Dr. Robins is following in gastroenterology consultation. -Chronic gastritis, continue Protonix. -Pancreatitis of unknown etiology, continue to monitor lipase and amylase, advance diet per gastroenterology recommendations. -Hypothyroidism, TSH is 47, continue at increased dose Synthroid. -Sinus bradycardia -Rheumatoid arthritis -Osteoporosis Further recommendations based on clinical course. Plan of care discussed with Dr. Vega. Problems: Exam/Review of Systems Vital Signs Vitals Vital Signs Date Time Temp Pulse Resp B/P Pulse Ox O2 Delivery O2 Flow Rate FiO2 09/11/16 14:03 98.1 77 16 99/57 99 Intake and Output 09/10/16 09/10/16 09/11/16 15:00 23:00 07:00 Intake Total 700 ml 1460 ml 1300 ml Balance 700 ml 1460 ml 1300 ml Exam Constitutional: alert, oriented Head: atraumatic, normocephalic Neck: supple Respiratory: normal air movement Cardiovascular: nl pulses Gastrointestinal: non-tender, soft Musculoskeletal: nl extremities to inspection Extremities: normal pulses Neurological: nl mental status Skin: nl turgor Results Result Diagram: 09/10/16 0435 09/10/16 0435 Results 24 hrs Laboratory Tests Test 09/11/16 05:20 Lipase 901 H Medications Medications Current Medications Ondansetron HCl (Zofran Inj) 4 mg Q6H PRN IV NAUSEA AND/OR VOMITING; Start 09/06 at 00:30 Acetaminophen (Tylenol Tab) 650 mg Q4H PRN PO PAIN AND OR ELEVATED TEMP; Start 09/06/16 at 00:30 Acetaminophen/ Hydrocodone Bitart ([place] (5/325)) 1 tab Q4H PRN PO PAIN; Start 09/06/16 at 00:30 Morphine Sulfate (morphine) 2 mg Q4H PRN IV PAIN; Start 09/06/16 at 00:30 Calcium/Vitamin D 1 tab 1 tab DAILY PO Last administered on 09/11/16t 08:22; Admin Dose 1 TAB; Start 09/06/16 at 09:00 Potassium Chloride/Dextrose/ Sod Cl 1,000 ml @ 100 mls/hr Q10H IV Last administered on 09/11/16 16:50; Admin Dose 100 MLS/HR; Start 09/07/16 at 12:00 Potassium Chloride/ Multivitamins/ Dextrose/Sodium Chloride (KCl/Mvi Adult/ D5-1 /2ns) 1,030 ml @ 100 mls/hr DAILY@10 IV Last administered on 09/11/16 12:28; Admin Dose 100 MLS/HR; Start 09/09/16 at 12:00 Levothyroxine Sodium (Synthroid) 150 mcg DAILY@06 PO Last administered on 05:04; Admin Dose 150 MCG; Start 09/09/16 at 16:00 Alendronate Sodium (Fosamax) 70 mg Tu@06 PO Last administered on 09/10/16 05: 09; Admin Dose 70 MG; Start 09/10/16 at 06:00 Pantoprazole (Protonix Tab) 40 mg DAILY@06 PO Last administered on 09/11/16 05 :02; Admin Dose 40 MG; Start 09/10/16 at 06:00 Neomycin/ Polymyxin/ Bacitracin (Neosporin Topical Oint) 1 applic BID TOP Last administered on 09/11/16 08:22; Admin Dose 1 APPLIC; Start 09/10/16 at 11:00 ANKITA TERRAZAS Sep 11, 2016 17:37
[2016-09-11 20:57] VITALS: BP 107/57; RESP 18
[2016-09-12] MEDS: D5W-0.45 NACL + KCL 40 MEQ 1,000 ML IV SCH ×3 (02:00→22:19)
[2016-09-12 02:52] VITALS: BP 107/53; RESP 18
[2016-09-12 05:07] LABS: ADD SCAN DIFF NO
[2016-09-12 05:10] LABS: BASOPHIL # 0.1 10^3/ul (0.0-0.1); BASOPHILS % 1.1 % (0.0-2.0); EOSINOPHILS # 0.3 10^3/ul (0.0-0.5); EOSINOPHILS % 3.3 % (0.0-7.0); HEMOGLOBIN 10.5 g/dl (12.0-16.0); LYMPHOCYTES # 1.7 10^3/ul (0.8-2.9); LYMPHOCYTES % 21.4 % (15.0-51.0); MEAN CORPUSCULAR HEMOGLOBIN 28.9 pg (29.0-33.0); MEAN CORPUSCULAR HGB CONC 31.8 g/dl (32.0-37.0); MEAN CORPUSCULAR VOLUME 90.9 fl (82.0-101.0); MEAN PLATELET VOLUME 9.6 fl (7.4-10.4); MONOCYTE # 0.7 10^3/ul (0.3-0.9); NEUTROPHIL # 5.1 10^3/ul (1.6-7.5); NEUTROPHILS % 64.9 % (39.0-77.0); PLATELET COUNT 279 10^3/UL (140-415); RED BLOOD COUNT 3.63 10^6/ul (4.20-5.40); RED CELL DISTRIBUTION WIDTH 13.8 % (11.5-14.5); WHITE BLOOD COUNT 7.9 10^3/ul (4.8-10.8)
[2016-09-12 05:33] LABS: CALCIUM 9.5 mg/dl (8.4-10.2); CREATININE 0.8 mg/dl (0.44-1.00); POTASSIUM 4.4 mmol/L (3.5-5.1)
[2016-09-12] MEDS: PANTOPRAZOLE (EC) 40 MG TAB PO SCH (05:45)
[2016-09-12] MEDS: LEVOTHYROXINE 150 MCG TAB PO SCH (05:45)
[2016-09-12] MEDS: CREON (12k-38k-60k) 1 CAP PO SCH ×3 (08:09→17:32)
[2016-09-12] MEDS: CALCIUM/VITAMIN D (500/200) TAB PO SCH (08:09)
[2016-09-12] MEDS: NEOMYC/POLYMYX/BACIT 30 GM OINT TOP SCH ×2 (08:10→22:19)
[2016-09-12 08:16] VITALS: BP 120/56; RESP 18
[2016-09-12] MEDS: DEXTROSE IV SCH ×3 (12:10)
[2016-09-12] MEDS: POTASSIUM CHLORIDE IV SCH ×3 (12:10)
[2016-09-12] MEDS: [UNRECOGNIZED DRUG - OTHER] IV SCH ×3 (12:10)
[2016-09-12] MEDS: MULTIVITAMIN IV SCH ×3 (12:10)
[2016-09-12 14:37] VITALS: BP 100/55; RESP 20
--- NOTE | 2016-09-12 19:03 | PN ---
Date/Time of Note Date/Time of Note DATE: 09/12/16 TIME: 18:59 Assessment/Plan VTE Prophylaxis VTE Prophylaxis Intervention: other Lines/Catheters IV Catheter Type (from [facility]): Peripheral IV Urinary Cath still in place: No Assessment/Plan Assessment/Plan -Intractable nausea and vomiting- none at Present. - per Dr. Robins in gastroenterology consultation. -Chronic gastritis, continue Protonix. -Pancreatitis of unknown etiology - continue to monitor lipase and amylase. Lipase 901. - advance diet per gastroenterology recommendations. -Hypothyroidism, TSH is 47, continue at increased dose Synthroid. -Sinus bradycardia -Rheumatoid arthritis -Osteoporosis Further recommendations based on clinical course. Plan of care discussed with Dr. Vega. Subjective 24 Hr Interval Summary Free Text/Dictation having dinner, denies any nausea vomiting, tolerates pured diet well.denies any abdominal phillip. no Lipase lab today. dw staff Exam/Review of Systems Vital Signs Vitals Vital Signs Date Time Temp Pulse Resp B/P Pulse Ox O2 Delivery O2 Flow Rate FiO2 09/12/16 14:37 98.5 69 20 100/55 100 Intake and Output 09/11/16 09/11/16 09/12/16 15:00 23:00 07:00 Intake Total 2520 ml 300 ml Balance 2520 ml 300 ml Exam Constitutional: alert, oriented, well developed Respiratory: clear to auscultation, normal air movement Cardiovascular: nl pulses, regular rate and rhythm Gastrointestinal: soft, tender Musculoskeletal: nl extremities to inspection Extremities: normal pulses Neurological: nl mental status, nl speech Results Result Diagram: 09/12/16 0446 09/12/16 0445 Results 24 hrs Laboratory Tests Test 09/12/16 04:45 09/12/16 04:46 Sodium Level 133 L Potassium Level 4.4 Chloride Level 102 Carbon Dioxide Level 26 Anion Gap 9 Blood Urea Nitrogen 6 L Creatinine 0.80 Glucose Level 101 Calcium Level 9.5 White Blood Count 7.9 Red Blood Count 3.63 L Hemoglobin 10.5 L Hematocrit 33.0 L Mean Corpuscular Volume 90.9 Mean Corpuscular Hemoglobin 28.9 L Mean Corpuscular Hemoglobin Concent 31.8 L Red Cell Distribution Width 13.8 Platelet Count 279 Mean Platelet Volume 9.6 Neutrophils % 64.9 Lymphocytes % 21.4 Monocytes % 9.0 Eosinophils % 3.3 Basophils % 1.1 Nucleated Red Blood Cells % 0.0 Neutrophils # 5.1 Lymphocytes # 1.7 Monocytes # 0.7 Eosinophils # 0.3 Basophils # 0.1 Nucleated Red Blood Cells # 0.0 Medications Medications Current Medications Ondansetron HCl (Zofran Inj) 4 mg Q6H PRN IV NAUSEA AND/OR VOMITING; Start 09/06 at 00:30 Acetaminophen (Tylenol Tab) 650 mg Q4H PRN PO PAIN AND OR ELEVATED TEMP; Start 09/06/16 at 00:30 Acetaminophen/ Hydrocodone Bitart ([place] (5/325)) 1 tab Q4H PRN PO PAIN; Start 09/06/16 at 00:30 Morphine Sulfate (morphine) 2 mg Q4H PRN IV PAIN; Start 09/06/16 at 00:30 Calcium/Vitamin D 1 tab 1 tab DAILY PO Last administered on 09/12/16 08:09; Admin Dose 1 TAB; Start 09/06/16 at 09:00 Potassium Chloride/Dextrose/ Sod Cl 1,000 ml @ 100 mls/hr Q10H IV Last administered on 09/11/16 16:50; Admin Dose 100 MLS/HR; Start 09/07/16 at 12:00 Potassium Chloride/ Multivitamins/ Dextrose/Sodium Chloride (KCl/Mvi Adult/ D5-1 /2ns) 1,030 ml @ 100 mls/hr DAILY@10 IV Last administered on 09/12/16 12:10; Admin Dose 100 MLS/HR; Start 09/09/16 at 12:00 Levothyroxine Sodium (Synthroid) 150 mcg DAILY@06 PO Last administered on 05:45; Admin Dose 150 MCG; Start 09/09/16 at 16:00 Alendronate Sodium (Fosamax) 70 mg Tu@06 PO Last administered on 09/10/16 05: 09; Admin Dose 70 MG; Start 09/10/16 at 06:00 Pantoprazole (Protonix Tab) 40 mg DAILY@06 PO Last administered on 09/12/16 05 :45; Admin Dose 40 MG; Start 09/10/16 at 06:00 Neomycin/ Polymyxin/ Bacitracin (Neosporin Topical Oint) 1 applic BID TOP Last administered on 09/12/16 08:10; Admin Dose 1 APPLIC; Start 09/10/16 at 11:00 RIGOBERTO CASILLAS Sep 12, 2016 19:02
[2016-09-12 20:00] VITALS: BP 103/58; RESP 18
[2016-09-13 02:58] VITALS: BP 105/58; RESP 18
[2016-09-13] MEDS: PANTOPRAZOLE (EC) 40 MG TAB PO SCH (05:07)
[2016-09-13] MEDS: LEVOTHYROXINE 150 MCG TAB PO SCH (05:08)
[2016-09-13 05:36] LABS: ADD SCAN DIFF NO
[2016-09-13 05:46] LABS: BASOPHIL # 0.1 10^3/ul (0.0-0.1); BASOPHILS % 1.4 % (0.0-2.0); EOSINOPHILS # 0.3 10^3/ul (0.0-0.5); EOSINOPHILS % 5.5 % (0.0-7.0); HEMATOCRIT 35.3 % (37.0-47.0); HEMOGLOBIN 11.3 g/dl (12.0-16.0); LYMPHOCYTES # 1.7 10^3/ul (0.8-2.9); LYMPHOCYTES % 29.2 % (15.0-51.0); MEAN CORPUSCULAR HEMOGLOBIN 29.6 pg (29.0-33.0); MEAN CORPUSCULAR VOLUME 92.4 fl (82.0-101.0); MEAN PLATELET VOLUME 9.6 fl (7.4-10.4); MONOCYTE # 0.7 10^3/ul (0.3-0.9); MONOCYTES % 11.7 % (0.0-11.0); NEUTROPHILS % 51.9 % (39.0-77.0); PLATELET COUNT 287 10^3/UL (140-415); RED BLOOD COUNT 3.82 10^6/ul (4.20-5.40); RED CELL DISTRIBUTION WIDTH 13.8 % (11.5-14.5); WHITE BLOOD COUNT 5.8 10^3/ul (4.8-10.8)
[2016-09-13 06:23] LABS: CALCIUM 9.7 mg/dl (8.4-10.2); CREATININE 0.82 mg/dl (0.44-1.00)
[2016-09-13] MEDS: CREON (12k-38k-60k) 1 CAP PO SCH ×3 (07:57→17:50)
[2016-09-13] MEDS: CALCIUM/VITAMIN D (500/200) TAB PO SCH (07:57)
[2016-09-13] MEDS: NEOMYC/POLYMYX/BACIT 30 GM OINT TOP SCH (08:00)
[2016-09-13] MEDS: D5W-0.45 NACL + KCL 40 MEQ 1,000 ML IV SCH (08:00)
[2016-09-13 08:19] VITALS: BP 110/74; RESP 18
[2016-09-13] MEDS: [UNRECOGNIZED DRUG - OTHER] IV SCH ×3 (10:43)
[2016-09-13] MEDS: DEXTROSE IV SCH ×3 (10:43)
[2016-09-13] MEDS: MULTIVITAMIN IV SCH ×3 (10:43)
[2016-09-13] MEDS: POTASSIUM CHLORIDE IV SCH ×3 (10:43)
[2016-09-13 14:45] VITALS: BP 95/51; RESP 18
--- NOTE | 2016-09-13 18:10 | PN ---
Date/Time of Note Date/Time of Note DATE: 09/13/16 TIME: 18:09 Assessment/Plan VTE Prophylaxis VTE Prophylaxis Intervention: SCD's Lines/Catheters IV Catheter Type (from [facility]): [place] Urinary Cath still in place: No Assessment/Plan Chief Complaint/Hosp Course Patient tolerates diet well denies any nausea and vomiting, complaints of abdominal pain. Lipase level is elevated 1197, continue to monitor Assessment/Plan -Intractable nausea and vomiting, Dr. Robins is following in gastroenterology consultation. -Chronic gastritis, continue Protonix. -Pancreatitis of unknown etiology, continue to monitor lipase and amylase, advance diet per gastroenterology recommendations. -Hypothyroidism, TSH is 47, continue at increased dose Synthroid. -Sinus bradycardia -Rheumatoid arthritis -Osteoporosis Further recommendations based on clinical course. Plan of care discussed with Dr. Vega. Problems: Exam/Review of Systems Vital Signs Vitals Vital Signs Date Time Temp Pulse Resp B/P Pulse Ox O2 Delivery O2 Flow Rate FiO2 09/13/16 14:45 97.9 81 18 95/51 98 Intake and Output 09/12/16 09/12/16 09/13/16 15:00 23:00 07:00 Intake Total 700 ml 2210 ml 1180 ml Balance 700 ml 2210 ml 1180 ml Exam Constitutional: alert, oriented Head: atraumatic, normocephalic Neck: supple Respiratory: normal air movement Cardiovascular: nl pulses Gastrointestinal: non-tender, soft Musculoskeletal: nl extremities to inspection Extremities: normal pulses Neurological: nl mental status Skin: nl turgor Results Result Diagram: 09/13/16 0521 09/13/16 0521 Results 24 hrs Laboratory Tests Test 09/13/16 05:20 09/13/16 05:21 Lipase 1197 H White Blood Count 5.8 # Red Blood Count 3.82 L Hemoglobin 11.3 L Hematocrit 35.3 L Mean Corpuscular Volume 92.4 Mean Corpuscular Hemoglobin 29.6 Mean Corpuscular Hemoglobin Concent 32.0 Red Cell Distribution Width 13.8 Platelet Count 287 Mean Platelet Volume 9.6 Neutrophils % 51.9 Lymphocytes % 29.2 Monocytes % 11.7 H Eosinophils % 5.5 Basophils % 1.4 Nucleated Red Blood Cells % 0.0 Neutrophils # 3.0 Lymphocytes # 1.7 Monocytes # 0.7 Eosinophils # 0.3 Basophils # 0.1 Nucleated Red Blood Cells # 0.0 Sodium Level 134 L Potassium Level 5.0 Chloride Level 100 Carbon Dioxide Level 29 Anion Gap 10 Blood Urea Nitrogen 5 L Creatinine 0.82 Glucose Level 118 Calcium Level 9.7 Amylase Level 211 H Medications Medications Current Medications Ondansetron HCl (Zofran Inj) 4 mg Q6H PRN IV NAUSEA AND/OR VOMITING; Start 09/06 at 00:30 Acetaminophen (Tylenol Tab) 650 mg Q4H PRN PO PAIN AND OR ELEVATED TEMP; Start 09/06/16 at 00:30 Acetaminophen/ Hydrocodone Bitart ([place] (5/325)) 1 tab Q4H PRN PO PAIN; Start 09/06/16 at 00:30 Morphine Sulfate (morphine) 2 mg Q4H PRN IV PAIN; Start 09/06/16 at 00:30 Calcium/Vitamin D ([place]/ Vit-D (500/200)) 1 tab DAILY PO Last administered on 09/13/16 07:57; Admin Dose 1 TAB; Start 09/06/16 at 09:00 Levothyroxine Sodium (Synthroid) 150 mcg DAILY@06 PO Last administered on 05:08; Admin Dose 150 MCG; Start 09/09/16 at 16:00 Alendronate Sodium (Fosamax) 70 mg Tu@06 PO Last administered on 09/10/16 05: 09; Admin Dose 70 MG; Start 09/10/16 at 06:00 Pantoprazole (Protonix Tab) 40 mg DAILY@06 PO Last administered on 09/13/16 05 :07; Admin Dose 40 MG; Start 09/10/16 at 06:00 Neomycin/ Polymyxin/ Bacitracin (Neosporin Topical Oint) 1 applic BID TOP Last administered on 09/13/16 08:00; Admin Dose 1 APPLIC; Start 09/10/16 at 11:00 ANKITA TERRAZAS Sep 13, 2016 18:10
[2016-09-13] MEDS: DEXTROSE 5%-0.45% NACL 1,000 ML IV SCH (23:56)
[2016-09-14 02:00] VITALS: BP 98/56; RESP 17
[2016-09-14] MEDS: PANTOPRAZOLE (EC) 40 MG TAB PO SCH (06:19)
[2016-09-14] MEDS: LEVOTHYROXINE 150 MCG TAB PO SCH (06:19)
[2016-09-14 07:06] LABS: CALCIUM 9.8 mg/dl (8.4-10.2); CREATININE 0.83 mg/dl (0.44-1.00); POTASSIUM 4.6 mmol/L (3.5-5.1)
[2016-09-14] MEDS: CREON (12k-38k-60k) 1 CAP PO SCH ×3 (08:10→17:34)
[2016-09-14] MEDS: CALCIUM/VITAMIN D (500/200) TAB PO SCH (08:10)
[2016-09-14] MEDS: DEXTROSE 5%-0.45% NACL 1,000 ML IV SCH (13:28)
[2016-09-14 14:20] VITALS: BP 78/45; PULSE 78
[2016-09-14] MEDS ORDERED: SOD CHLORIDE 0.9% 1,000 ML IV ONE (15:00)
[2016-09-14 15:58] VITALS: BP 121/63; PULSE 79
--- NOTE | 2016-09-14 19:05 | PN ---
Date/Time of Note Date/Time of Note DATE: 09/14/16 TIME: 19:04 Assessment/Plan VTE Prophylaxis VTE Prophylaxis Intervention: other Lines/Catheters IV Catheter Type (from Nrs): Peripheral IV Urinary Cath still in place: No Assessment/Plan Assessment/Plan -Intractable nausea and vomiting, Dr. Robins is following in gastroenterology consultation. -Chronic gastritis, continue Protonix. -Pancreatitis of unknown etiology, continue to monitor lipase and amylase, advance diet per gastroenterology recommendations. -Hypothyroidism, TSH is 47, continue at increased dose Synthroid. -Sinus bradycardia -Rheumatoid arthritis -Osteoporosis Further recommendations based on clinical course. Plan of care discussed with Dr. Vega. Subjective 24 Hr Interval Summary Constitutional: improved, requiring IVF Cardiovascular: no complaints Gastrointestinal: pain Genitourinary: no complaints Musculoskeletal: no complaints Skin: no complaints Neurologic: no complaints Exam/Review of Systems Vital Signs Vitals Vital Signs Date Time Temp Pulse Resp B/P Pulse Ox O2 Delivery O2 Flow Rate FiO2 09/14/16 15:58 79 121/63 09/14/16 02:00 98.5 17 100 Intake and Output 09/13/16 09/13/16 09/14/16 15:00 23:00 07:00 Intake Total 500 ml 650 ml 1025 ml Balance 500 ml 650 ml 1025 ml Exam Constitutional: alert, oriented, well developed ENMT: nl external ears & nose Respiratory: clear to auscultation, normal air movement Cardiovascular: nl pulses, regular rate and rhythm Gastrointestinal: soft Musculoskeletal: nl extremities to inspection Neurological: nl mental status, nl speech Results Result Diagram: 09/13/16 0521 09/14/16 0446 Results 24 hrs Laboratory Tests Test 09/14/16 04:46 Sodium Level 141 Potassium Level 4.6 Chloride Level 96 L Carbon Dioxide Level 28 Anion Gap 22 H Blood Urea Nitrogen 11 Creatinine 0.83 Glucose Level 125 Calcium Level 9.8 Lipase 1019 H Medications Medications Current Medications Ondansetron HCl (Zofran Inj) 4 mg Q6H PRN IV NAUSEA AND/OR VOMITING Last administered on 09/13/16t 23:59; Admin Dose 4 MG; Start 09/06/16 at 00:30 Acetaminophen (Tylenol Tab) 650 mg Q4H PRN PO PAIN AND OR ELEVATED TEMP; Start 09/06/16 at 00:30 Acetaminophen/ Hydrocodone Bitart ([place] (5/325)) 1 tab Q4H PRN PO PAIN; Start 09/06/16 at 00:30 Morphine Sulfate (morphine) 2 mg Q4H PRN IV PAIN; Start 09/06/16 at 00:30 Calcium/Vitamin D ([place]/ Vit-D (500/200)) 1 tab DAILY PO Last administered on 09/14/16 08:10; Admin Dose 1 TAB; Start 09/06/16 at 09:00 Levothyroxine Sodium (Synthroid) 150 mcg DAILY@06 PO Last administered on 06:19; Admin Dose 150 MCG; Start 09/09/16 at 16:00 Alendronate Sodium (Fosamax) 70 mg Tu@06 PO Last administered on 09/10/16 05: 09; Admin Dose 70 MG; Start 09/10/16 at 06:00 Pantoprazole 40 mg 40 mg DAILY@06 PO Last administered on 09/14/16 06:19; Admin Dose 40 MG; Start 09/10/16 at 06:00 Dextrose/Sodium Chloride (D5-1/2ns) 1,000 ml @ 75 mls/hr [id number] IV Last administered on 09/14/16 13:28; Admin Dose 75 MLS/HR; Start 09/14/16 at 00:00 RIGOBERTO CASILLAS Sep 14, 2016 19:05
[2016-09-14 20:42] VITALS: BP 99/56; RESP 18
[2016-09-15 02:41] VITALS: BP 94/55; RESP 16
[2016-09-15] MEDS: DEXTROSE 5%-0.45% NACL 1,000 ML IV SCH ×2 (05:36→16:00)
[2016-09-15] MEDS: PANTOPRAZOLE (EC) 40 MG TAB PO SCH (05:36)
[2016-09-15] MEDS: LEVOTHYROXINE 150 MCG TAB PO SCH (05:36)
[2016-09-15 05:37] LABS: ADD SCAN DIFF NO
[2016-09-15 05:50] LABS: BASOPHIL # 0.1 10^3/ul (0.0-0.1); EOSINOPHILS # 0.4 10^3/ul (0.0-0.5); EOSINOPHILS % 5.9 % (0.0-7.0); HEMATOCRIT 33.1 % (37.0-47.0); HEMOGLOBIN 10.5 g/dl (12.0-16.0); LYMPHOCYTES # 1.6 10^3/ul (0.8-2.9); LYMPHOCYTES % 25.7 % (15.0-51.0); MEAN CORPUSCULAR HEMOGLOBIN 28.9 pg (29.0-33.0); MEAN CORPUSCULAR HGB CONC 31.7 g/dl (32.0-37.0); MEAN CORPUSCULAR VOLUME 91.2 fl (82.0-101.0); MEAN PLATELET VOLUME 9.9 fl (7.4-10.4); MONOCYTE # 0.6 10^3/ul (0.3-0.9); NEUTROPHIL # 3.6 10^3/ul (1.6-7.5); NEUTROPHILS % 57.1 % (39.0-77.0); PLATELET COUNT 278 10^3/UL (140-415); RED BLOOD COUNT 3.63 10^6/ul (4.20-5.40); RED CELL DISTRIBUTION WIDTH 13.6 % (11.5-14.5); WHITE BLOOD COUNT 6.2 10^3/ul (4.8-10.8)
[2016-09-15 05:58] LABS: ALBUMIN 4.2 g/dl (3.3-4.9); ALBUMIN/GLOBULIN RATIO 1.23; BILIRUBIN,INDIRECT 0.1 mg/dl (0-1.1); BILIRUBIN,TOTAL 0.1 mg/dl (0.2-1.3); CALCIUM 9.4 mg/dl (8.4-10.2); CREATININE 0.82 mg/dl (0.44-1.00); POTASSIUM 4.3 mmol/L (3.5-5.1); TOTAL PROTEIN 7.6 g/dl (6.1-8.1)
[2016-09-15 08:12] VITALS: BP 114/67; RESP 19
[2016-09-15] MEDS: CREON (12k-38k-60k) 1 CAP PO SCH ×3 (08:13→17:39)
[2016-09-15] MEDS: CALCIUM/VITAMIN D (500/200) TAB PO SCH (08:13)
[2016-09-15 14:44] VITALS: BP 113/60; RESP 19
[2016-09-15] MEDS ORDERED: LIPA1CAP4 PO (15:36)
[2016-09-15] MEDS ORDERED: ALEN70TA30 PO (16:05)
[2016-09-15] MEDS ORDERED: HYDR-3498 PO (16:05)
[2016-09-15] MEDS ORDERED: PANT40TA4 PO (16:05)
[2016-09-15] MEDS ORDERED: SYN15 PO (16:05)
--- NOTE | 2016-09-15 16:24 | PDOCDIS ---
Discharge Instructions CONDITION Patient Condition: Stable HOME CARE INSTRUCTIONS: Special Diet: Clear liquid ACTIVITY: Activity Restrictions: Slowly Increase Activity Rest between Activity Avoid heavy lifting Do not operate Power Tool Avoid Heavy Housework Bathing Restrictions: Sponge Bath FOLLOW UP/APPOINTMENTS Follow-up Plan Follow with MD X 1week Follow with GI as recommend Call 911 or go to the nearest hospital if symptoms get worse. Patient verbalized understanding discharge instructions. RIGOBERTO CASILLAS Sep 15, 2016 16:24
--- NOTE | 2016-09-15 16:25 | DS ---
Date/Time of Note Date/Time of Note DATE: 09/15/16 TIME: 16:25 Discharge Summary Admission/Discharge Info Admit Date/Time Sep 05, 2016 at 23:14 Discharge Date/Time Patient Condition: Stable Hx of Present Illness The patient is is a 55-year-old female with past medical history positive for hypothyroidism, osteoporosis, rheumatoid arthritis, and gastritis. Patient developed abdominal pain nausea and vomiting and was admitted to [facility] August 29 and was diagnosed with pancreatitis, workup done including MRCP which was unremarkable, patient also underwent upper endoscopy by Dr. Porter, report is not available however gastric biopsy was positive for mild chronic gastritis and moderate interstitial metaplasia. Patient lipase was elevated to 3000 according to patient and came down to 800 and patient was discharged home. Patient was not able to tolerate food intake at home, complained of nausea and vomiting and patient presented to [facility] and was transferred to [facility] [place] due to insurance reasons reason. Patient's complains of a burning sensation in the chest, patient denied any shortness of breath, denies any chest pain, denies any fever chills. Hospital Course Patient tolerates diet well denies any nausea and vomiting, complaints of abdominal pain. Lipase level is elevated 1197, continue to monitor Assessment/Plan -Intractable nausea and vomiting, Dr. Robins is following in gastroenterology consultation. -Chronic gastritis, continue Protonix. -Pancreatitis of unknown etiology, continue to monitor lipase and amylase, advance diet per gastroenterology recommendations. -Hypothyroidism, TSH is 47, continue at increased dose Synthroid. -Sinus bradycardia -Rheumatoid arthritis -Osteoporosis Further recommendations based on clinical course. Plan of care discussed with Dr. Vega. Home Meds Active Scripts Hydrocodone Bit-Acetaminophen (Hydrocodone Bit-APAP) 5-325MG Tablet, 1 TAB PO Q6H Y for PAIN, #10 TAB Prov:RIGOBERTO CASILLAS 09/15/16 Pantoprazole* (Pantoprazole*) 40 Mg Tablet., 40 MG PO DAILY@06 for 30 Days Prov:RIGOBERTO CASILLAS 09/15/16 Levothyroxine Sodium* (Synthroid*) 150 Mcg Tablet, 150 MCG PO DAILY@06 for 30 Days, TAB Prov:RIGOBERTO CASILLAS 09/15/16 Alendronate Sodium* (Fosamax*) 70 Mg Tablet, 70 MG PO Tu@06 for 30 Days, TAB Prov:RIGOBERTO CASILLAS 09/15/16 Fkiuvh-Sxgbgirx-Yzsgtrl* ([place] XIAO* 12,000) 12,000 L-38,000-60,000 Unit Capsule., 1 CAP PO WITH MEALS for 30 Days Prov:RIGOBERTO CASILLAS 09/15/16 Reported Medications Omeprazole* (Omeprazole*) 20 Mg Capsule.dr, 20 MG PO DAILY 09/06/16 Levothyroxine Sodium* (Levothyroxine Sodium*) 112 Mcg Tablet, 112 MCG PO BEFORE BREAKFAST, #30 TAB 09/06/16 Ibuprofen* (Ibuprofen*) 600 Mg Tablet, 600 MG PO Q6 for PAIN, TAB 09/06/16 Calcium Carbonate/Vitamin D3 ([place] 500+D Tablet) 1 Each Tablet, 1 EACH PO DAILY , TAB 09/06/16 Acetaminophen (Mapap) 500 Mg Capsule, 500 MG PO Q4H Y for PAIN, CAP 09/06/16 Alendronate Sodium* (Fosamax*) 70 Mg Tablet, 70 MG PO Qsunday 09/06/16 Primary Care Provider Not On Staff Doctor Pending Labs Laboratory Tests Test 09/15/16 04:28 White Blood Count 6.210^3/ul (4.8-10.8) Red Blood Count 3.6310^6/ul (4.20-5.40) Hemoglobin 10.5g/dl (12.0-16.0) Hematocrit 33.1% (37.0-47.0) Mean Corpuscular Volume 91.2fl (82.0-101.0) Mean Corpuscular Hemoglobin 28.9pg (29.0-33.0) Mean Corpuscular Hemoglobin Concent 31.7g/dl (32.0-37.0) Red Cell Distribution Width 13.6% (11.5-14.5) Platelet Count 82570^3/UL (140-415) Mean Platelet Volume 9.9fl (7.4-10.4) Neutrophils % 57.1% (39.0-77.0) Lymphocytes % 25.7% (15.0-51.0) Monocytes % 10.0% (0.0-11.0) Eosinophils % 5.9% (0.0-7.0) Basophils % 1.0% (0.0-2.0) Nucleated Red Blood Cells % 0.0/100WBC (0.0-0.0) Neutrophils # 3.610^3/ul (1.6-7.5) Lymphocytes # 1.610^3/ul (0.8-2.9) Monocytes # 0.610^3/ul (0.3-0.9) Eosinophils # 0.410^3/ul (0.0-0.5) Basophils # 0.110^3/ul (0.0-0.1) Nucleated Red Blood Cells # 0.010^3/ul (0.0-0.0) Sodium Level 143mmol/L (135-144) Potassium Level 4.3mmol/L (3.5-5.1) Chloride Level 102mmol/L (97-110) Carbon Dioxide Level 28mmol/L (21-31) Anion Gap 17 (8-16) Blood Urea Nitrogen 9mg/dl (7-20) Creatinine 0.82mg/dl (0.44-1.00) Glucose Level 127mg/dl (70-220) Calcium Level 9.4mg/dl (8.4-10.2) Total Bilirubin 0.1mg/dl (0.2-1.3) Direct Bilirubin 0.00mg/dl (0.00-0.20) Indirect Bilirubin 0.1mg/dl (0-1.1) Aspartate Amino Transf (AST/SGOT) 42IU/L (15-46) Alanine Aminotransferase (ALT/SGPT) 56IU/L (13-69) Alkaline Phosphatase 94IU/L (42-121) Total Protein 7.6g/dl (6.1-8.1) Albumin 4.2g/dl (3.3-4.9) Globulin 3.40g/dl (1.3-3.2) Albumin/Globulin Ratio 1.23 Lipase 968U/L (23-300) RIGOBERTO CASILLAS Sep 15, 2016 16:25
[2016-09-15] MEDS: ACETAMINOPHEN 325 MG TAB PO PRN ×2 (16:29→16:31)
--- NOTE | 2016-09-17 09:26 | PN ---
DATE: 09/09/2016 CHIEF COMPLAINT: At this time the patient has no abdominal pain. PHYSICAL EXAM: ABDOMEN: Soft and nontender. LABORATORY: The blood test which lipase went up to 1,447. rate was down to 1,614 yesterday. Thyroxine is 12.7. The WBC was 8,600 yesterday. Hemoglobin 10.7. Potassium 3.2. Bilirubin 0.2, AST 24, ALT 39, alk phos 75. CT scan of the abdomen a couple of days ago showed no pancreatitis. Patient having persistent elevation of the serum lipase, and she has a high TSH of 47. CLINICAL IMPRESSION: Patient presenting with history of pancreatitis, etiology not known. She could be passing small stones. I do not see any big relation to the thyroid disease and pancreatitis at this time. PLAN: I would recommend MRCP to rule out common duct stones or pancreatic duct stones or pancreatic duct abnormalities, including sphincter of Oddi dysfunction or pancreatic divisum. Dictated By: Delmer Robins MD /[email or web address] /Document#: [id number]
== END 2016-09-15 18:56 | disposition home or self-care (01) | DRG 440 ==
LOC: PP2 23:14
PROVIDERS: ADMIT Internal Medicine; ATTEND Internal Medicine
DX: K85.90 Acute pancreatitis without necrosis or infection, unspecified (principal); R00.1 Bradycardia, unspecified; K29.50 Unspecified chronic gastritis without bleeding; E03.9 Hypothyroidism, unspecified; M06.9 Rheumatoid arthritis, unspecified; M81.0 Age-related osteoporosis without current pathological fracture; Z86.59 Personal history of other mental and behavioral disorders
CPT/HCPCS: 74178; 74181; 80048; 80053; 80061; 82150; 83690; 84436; 84443; 84479; 85025; 93005; C9113; J2405; J3480; J7030; J7042; Q9967